=== PATIENT | female | born 1990 | race Two or more races ===

== ENCOUNTER → 2017-02-22 | Outpatient (CLI) | payer OTHER | LOC: FIMAGING 14:14 | PROVIDERS: ATTEND Nurse Practitioner | DX: R10.2 Pelvic and perineal pain (principal) ==

== ENCOUNTER → 2018-01-07 | Outpatient (CLI) | payer MEDICAID, OTHER | LOC: FIMAGING 13:12 | PROVIDERS: ATTEND Advanced Practice Midwife | DX: N83.201 Unspecified ovarian cyst, right side (principal); R93.8 Abnormal findings on diagnostic imaging of other specified body structures ==

== ENCOUNTER → 2018-03-18 | Outpatient (CLI) | payer MEDICAID | LOC: FIMAGING 13:11 | DX: N93.9 Abnormal uterine and vaginal bleeding, unspecified (principal); R93.8 Abnormal findings on diagnostic imaging of other specified body structures ==

== ENCOUNTER → 2018-10-31 | Outpatient (CLI) | payer MEDICAID | LOC: FIMAGING 13:51 | PROVIDERS: ATTEND Obstetrics & Gynecology Gynecology | DX: N92.0 Excessive and frequent menstruation with regular cycle (principal); R93.89 Abnormal findings on diagnostic imaging of other specified body structures ==